=== PATIENT | male | born 1965 | race Caucasian/White ===

== ENCOUNTER 2017-10-16 06:36 | Emergency (ER) | payer OTHER ==
[~2017-10-16] VITALS: Ht 175.3 cm; Wt 75.0 kg
[2017-10-16] MEDS ORDERED: SILVER NITRATE APPLICATOR STICK TOP ONE (07:45)
[2017-10-16] MEDS ORDERED: COCAINE 4% TOPICAL SOLN 4ML TOP ONE (07:45)
[2017-10-16] MEDS ORDERED: ONDANSETRON 4MG ODT PO ONE (14:00)
[2017-10-16 14:44] VITALS: BP 132/71
== END 2017-10-16 14:56 | disposition home or self-care (01) ==
LOC: ER 07:18
DX: R04.0 Epistaxis (principal); F12.10 Cannabis abuse, uncomplicated
CPT/HCPCS: 30901; 99284; Q0162

== ENCOUNTER 2017-10-16 21:36 | Emergency (ER) | payer OTHER ==
[~2017-10-16] VITALS: Ht 175.3 cm; Wt 75.0 kg
[2017-10-17 00:17] LABS: HEMATOCRIT 35.4 % (42.0-52.0); HEMOGLOBIN 11.6 g/dL (14.0-18.0); MEAN CORPUSCULAR HEMOGLOBIN 29.9 pg (28.0-32.0); MEAN CORPUSCULAR VOLUME 91.1 fL (80.0-94.0); PLATELET 222 x1000/uL (130-400); RED BLOOD CELL COUNT 3.89 mill/uL (4.7-6.1); RED CELL DISTRIBUTION WIDTH 17.7 % (11.6-14.6)
[2017-10-17 00:26] LABS: INR 1.2; PARTIAL THROMBOPLASTIN TIME 24.8 sec (23.4-31.0); PROTHROMBIN TIME 12.2 sec (9.4-11.6)
[2017-10-17] MEDS ORDERED: TRANEXAMIC ACID 1,000 MG/10 ML IV ONE (00:30)
[2017-10-17] MEDS ORDERED: TRANEXAMIC ACID 500 MG in SODIUM CHLORIDE 0.9% 100 ML IV NR (01:00)
[2017-10-17 02:30] VITALS: BP 155/59
== END 2017-10-17 02:30 | disposition home or self-care (01) ==
LOC: ER 22:23
DX: R04.0 Epistaxis (principal); R51 Headache; F12.10 Cannabis abuse, uncomplicated; Z98.890 Other specified postprocedural states
CPT/HCPCS: 30901; 36415; 85027; 85610; 85730; 86850; 86900; 99284; J7050

== ENCOUNTER 2017-10-17 13:55 | Emergency (ER) | payer OTHER ==
[~2017-10-17] VITALS: Ht 162.6 cm; Wt 75.0 kg
[2017-10-17 14:05] VITALS: BP 157/96
== END 2017-10-17 16:00 | disposition home or self-care (01) ==
LOC: ER 14:00
DX: R04.0 Epistaxis (principal); F12.10 Cannabis abuse, uncomplicated
CPT/HCPCS: 99283

== ENCOUNTER 2017-10-19 20:44 | Emergency (ER) | payer OTHER ==
[~2017-10-19] VITALS: Ht 167.6 cm; Wt 75.0 kg
[2017-10-19 23:44] VITALS: BP 131/87
== END 2017-10-19 23:46 | disposition home or self-care (01) ==
LOC: ER 22:14
DX: Z48.00 Encounter for change or removal of nonsurgical wound dressing (principal); R04.0 Epistaxis
CPT/HCPCS: 30901; 99284; X7700; Z7610